=== PATIENT | male | born 1950 | race Caucasian/White ===

== ENCOUNTER 2017-12-13 12:06 | Inpatient (IN) | payer OTHER ==
[~2017-12-13] VITALS: Ht 170.2 cm; Wt 48.3 kg
[~2017-12-13 12:06] MED LIST: ASPI325T17 PO; ATOR80TA PO; CARV3.1212 PO; IPRA4AER INH; METH10SY PO; METH40TA3 PO; MULT-750 PO; NITR0.4T SL; PANT40TA3 PO; POLY17PO5 PO; TICA90TA PO
[2017-12-13] MEDS ORDERED: SODIUM CHLORIDE FLUSH 10ML SYR IVF ONE (13:00)
[2017-12-13 13:19] LABS: BASOPHILS # (AUTO) 0.03 x10^3/uL (0-0.1); BASOPHILS % (AUTO) 0 % (0-1); EOSINOPHILS # (AUTO) 0.04 x10^3/uL (0-0.4); EOSINOPHILS % (AUTO) 1 % (1-7); LYMPHOCYTES # (AUTO) 0.73 x10^3/uL (1-3.4); LYMPHOCYTES % (AUTO) 9 % (22-44); MD NO; MEAN CORPUSCULAR HEMOGLOBIN 35.9 pg (27.5-34.5); MEAN CORPUSCULAR HGB CONC 33.5 g/dL (33.2-36.2); MEAN CORPUSCULAR VOLUME 107.1 fL (81-97); MEAN PLATELET VOLUME 7.6 fL (7.4-10.4); MONOCYTES # (AUTO) 0.57 x10^3/uL (0.2-0.8); MONOCYTES % (AUTO) 7 % (2-9); NEUTROPHILS # (AUTO) 7.04 x10^3/uL (1.8-6.8); NEUTROPHILS % (AUTO) 84 % (42-75); PLATELET COUNT 250 x10^3/uL (130-400); RED BLOOD COUNT 2.86 x10^6/uL (4.38-5.82); RED CELL DISTRIBUTION WIDTH 18.6 % (9.4-14.8)
[2017-12-13 13:32] LABS: ALANINE AMINOTRANSFERASE 34 U/L (12-78); ALBUMIN 1.8 g/dL (3.4-5.0); ANION GAP 11 mmol/L (5-15); CALCIUM 7.9 mg/dL (8.5-10.1); CHLORIDE 102 mmol/L (98-107); CREATININE 0.66 mg/dL (0.7-1.3)
[2017-12-13 13:36] LABS: TOTAL PROTEIN 7.9 g/dL (6.4-8.2); TROPONIN I < 0.015 ng/mL (0.000-0.045)
[2017-12-13 13:41] LABS: INTERNATIONAL NORMALIZED RATIO 1.11 (0.93-1.1); PROTHROMBIN TIME 11.4 Seconds (9.6-11.5)
[2017-12-13 13:46] LABS: ALKALINE PHOSPHATASE 1436 U/L (45-117)
[2017-12-13] MEDS ORDERED: SODIUM CHLORIDE 0.9% 1,000ML IVBOLUS ONE (14:00)
[2017-12-13] MEDS ORDERED: SODIUM CHLORIDE 0.9% 1,000 ML IV ONE (14:40)
[2017-12-13] MEDS ORDERED: SODIUM CHLORIDE FLUSH 10ML SYR IVF PRN (15:00)
[2017-12-13] MEDS ORDERED: TAMSULOSIN 0.4 MG CAP.ER.24H PO SCH (15:00)
[2017-12-13] MEDS ORDERED: ONDANSETRON ODT 4 MG PO PRN (15:00)
[2017-12-13] MEDS ORDERED: POTASSIUM CHLORIDE 20 MEQ TAB.ER.PRT PO ONE (15:00)
[2017-12-13] MEDS ORDERED: ASPI325T17 PO (16:09)
[2017-12-13] MEDS ORDERED: METH10SY PO (16:09)
[2017-12-13 16:16] LABS: TROPONIN I < 0.015 ng/mL (0.000-0.045)
[2017-12-13 16:48] VITALS: BP 133/80
[2017-12-13] MEDS: ALBUMIN HUMAN 25% 100 ML IV SCH (17:00)
[2017-12-13] MEDS ORDERED: ZOLPIDEM 10MG TABLET PO PRN (17:00)
[2017-12-13] MEDS ORDERED: ACETAMINOPHEN 325 MG TABLET PO PRN (17:00)
[2017-12-13] MEDS: NICOTINE 7 MG/24 HR PATCH.TD24 TD SCH (17:14)
[2017-12-13] MEDS: FUROSEMIDE 20 MG/2 ML IV SCH (18:13)
[2017-12-13] MEDS ORDERED: CETI10TA24 PO (18:21)
[2017-12-13 19:36] VITALS: BP 118/74
[2017-12-13] MEDS: ATORVASTATIN 40 MG TABLET PO SCH (21:07)
[2017-12-13 22:54] LABS: % IRON SATURATION 37 % (20-55); IRON LEVEL 53 mcg/dL (65-175); TOTAL IRON BINDING CAPACITY 142 mcg/dL (250-450); TROPONIN I < 0.015 ng/mL (0.000-0.045)
[2017-12-13 23:23] LABS: FOLATE LEVEL 13.6 ng/mL (3.1-17.5); TRANSFERRIN 116 mg/dL (200-360)
[2017-12-14] MEDS: ALBUMIN HUMAN 25% 100 ML IV SCH ×4 (00:12→18:26)
[2017-12-14 01:18] VITALS: BP 111/67
[2017-12-14] MEDS: FUROSEMIDE 20 MG/2 ML IV SCH ×4 (01:23→22:37)
[2017-12-14] MEDS ORDERED: REGADENOSON 0.4 MG/5 ML SYRINGE ONE (08:29)
[2017-12-14 08:57] VITALS: BP 118/69
[2017-12-14] MEDS ORDERED: METHADONE 10 MG TABLET ONE (10:45)
[2017-12-14] MEDS: ASPIRIN 325 MG TABLET PO SCH (10:49)
[2017-12-14] MEDS: TAMSULOSIN 0.4 MG CAP.ER.24H PO SCH (10:49)
[2017-12-14] MEDS: METHADONE INTENSOL 10 MG/ML ORAL CONC PO SCH (10:50)
[2017-12-14] MEDS: NICOTINE 7 MG/24 HR PATCH.TD24 TD SCH (12:53)
[2017-12-14 13:50] VITALS: BP 114/72
[2017-12-14 19:05] VITALS: BP 133/77
[2017-12-14] MEDS: ATORVASTATIN 40 MG TABLET PO SCH (20:21)
[2017-12-14] MEDS ORDERED: METHADONE 10 MG TABLET PO ONE (20:30)
[2017-12-14 22:41] VITALS: BP 113/67
[2017-12-15 00:43] VITALS: BP 106/66
[2017-12-15] MEDS: ALBUMIN HUMAN 25% 100 ML IV SCH (01:36)
[2017-12-15] MEDS: FUROSEMIDE 20 MG/2 ML IV SCH (04:28)
[2017-12-15] MEDS ORDERED: ASPI325T17 PO (06:47)
[2017-12-15 07:58] VITALS: BP 138/78
[2017-12-15] MEDS: ASPIRIN 325 MG TABLET PO SCH (09:11)
[2017-12-15] MEDS: METHADONE INTENSOL 10 MG/ML ORAL CONC PO SCH (09:11)
[2017-12-15] MEDS: TAMSULOSIN 0.4 MG CAP.ER.24H PO SCH (09:11)
== END 2017-12-15 11:15 | disposition home or self-care (01) | DRG 303 ==
LOC: ED 14:27 → EDIP 14:40 → 5SO 15:29 → DCLOUNGE 12-15 10:45
PROVIDERS: ADMIT Hospitalist; ATTEND Hospitalist
DX: I25.110 Atherosclerotic heart disease of native coronary artery with unstable angina pectoris (principal); J44.9 Chronic obstructive pulmonary disease, unspecified; K70.11 Alcoholic hepatitis with ascites; K80.70 Calculus of gallbladder and bile duct without cholecystitis without obstruction; D64.89 Other specified anemias; F10.10 Alcohol abuse, uncomplicated; Y90.9 Presence of alcohol in blood, level not specified; B19.20 Unspecified viral hepatitis C without hepatic coma; E78.5 Hyperlipidemia, unspecified; E03.9 Hypothyroidism, unspecified; I34.0 Nonrheumatic mitral (valve) insufficiency; I10 Essential (primary) hypertension; F17.200 Nicotine dependence, unspecified, uncomplicated; I25.2 Old myocardial infarction; Z95.5 Presence of coronary angioplasty implant and graft; Z91.19 Patient's noncompliance with other medical treatment and regimen; Z79.82 Long term (current) use of aspirin; Z79.899 Other long term (current) drug therapy; Z79.1 Long term (current) use of non-steroidal anti-inflammatories (NSAID)
CPT/HCPCS: 36415; 71045; 74181; 78452; 80053; 82105; 82378; 82607; 82728; 82746; 83540; 83550; 83690; 83880; 84443; 84466; 84484; 85025; 85610; 85730; 86304; 86705; 86706; 86803; 87340; 87521; 87806; 93005; 93017; 93306; 99285; J2785; P9047; A9502; C9898; G0475; J1940; J7030

== ENCOUNTER → 2018-06-08 | Outpatient (CLI) | payer OTHER ==
[~2018-06-08] MED LIST changes: +CETI10TA24 PO; +No meds per pt.
[2018-06-08 13:23] LABS: BASOPHILS # (AUTO) 0.02 x10^3/uL (0-0.1); BASOPHILS % (AUTO) 0 % (0-1); EOSINOPHILS # (AUTO) 0.14 x10^3/uL (0-0.4); EOSINOPHILS % (AUTO) 2 % (1-7); LYMPHOCYTES # (AUTO) 1.08 x10^3/uL (1-3.4); LYMPHOCYTES % (AUTO) 17 % (22-44); MD NO; MEAN CORPUSCULAR HGB CONC 34.4 g/dL (33.2-36.2); MEAN CORPUSCULAR VOLUME 107.5 fL (81-97); MEAN PLATELET VOLUME 8.2 fL (7.4-10.4); MONOCYTES # (AUTO) 0.44 x10^3/uL (0.2-0.8); MONOCYTES % (AUTO) 7 % (2-9); NEUTROPHILS # (AUTO) 4.66 x10^3/uL (1.8-6.8); NEUTROPHILS % (AUTO) 73 % (42-75); PLATELET COUNT 213 x10^3/uL (130-400); RED CELL DISTRIBUTION WIDTH 16.5 % (9.4-14.8)
[2018-06-08 13:25] LABS: ALANINE AMINOTRANSFERASE 109 U/L (12-78); ALBUMIN 2.5 g/dL (3.4-5.0); ANION GAP 8 mmol/L (5-15); CALCIUM 8.7 mg/dL (8.5-10.1); CHLORIDE 100 mmol/L (98-107)
[2018-06-08 13:27] LABS: ALKALINE PHOSPHATASE 891 U/L (45-117); BILIRUBIN,TOTAL 8.7 mg/dL (0.2-1.0); TOTAL PROTEIN 9.3 g/dL (6.4-8.2)
[2018-06-08 13:28] LABS: INTERNATIONAL NORMALIZED RATIO 1.12 (0.93-1.1); PROTHROMBIN TIME 11.6 Seconds (9.6-11.5)
== END | disposition home or self-care (01) ==
LOC: STAR 11:48
PROVIDERS: ATTEND Internal Medicine Gastroenterology
DX: Z01.818 Encounter for other preprocedural examination (principal); R17 Unspecified jaundice; R16.0 Hepatomegaly, not elsewhere classified
CPT/HCPCS: 36415; 80053; 85025; 85610; 85730; 93005

== ENCOUNTER 2018-06-16 05:37 | Day surgery (SDC) | payer OTHER ==
[2018-06-08 12:40] VITALS: BP 126/71
[~2018-06-16] VITALS: Ht 170.2 cm; Wt 47.2 kg
[2018-06-16] MEDS ORDERED: LACTATED RINGERS 1,000 ML IV SCH (06:10)
[2018-06-16] MEDS ORDERED: CHLORHEXIDINE 15 ML BOTTLE ONE (06:58)
[2018-06-16] MEDS ORDERED: PIPERACILLIN/TAZO/PMX 3.375GM 50 ML ONE (07:00)
[2018-06-16] MEDS ORDERED: FENTANYL PF 100 MCG/2ML ONE (07:19)
[2018-06-16] MEDS ORDERED: EPHEDRINE 50 MG/ML, 1ML ONE (07:20)
[2018-06-16] MEDS ORDERED: CEFAZOLIN 1,000 MG ONE (07:47)
[2018-06-16] MEDS ORDERED: DEXAMETHASONE 4 MG/ML, 1ML ONE (07:47)
[2018-06-16] MEDS ORDERED: SUCCINYLCHOLINE 20 MG/ML, 10ML ONE (07:47)
[2018-06-16] MEDS ORDERED: ROCURONIUM 10MG/ML,5ML ONE (07:47)
[2018-06-16] MEDS ORDERED: NEOSTIGMINE 1 MG/ML, 10ML ONE (07:47)
[2018-06-16] MEDS ORDERED: PROPOFOL 10 MG/ML, 20ML ONE (07:47)
[2018-06-16] MEDS ORDERED: GLYCOPYRROLATE 0.2MG/1ML, 5ML ONE (07:47)
[2018-06-16] MEDS ORDERED: ONDANSETRON 2MG/ML, 2ML ONE (07:47)
[2018-06-16] MEDS ORDERED: ACETAMINOPHEN 325 MG TABLET PO PRN (08:00)
[2018-06-16] MEDS ORDERED: MEPERIDINE/PF 25MG/0.5ML IVPush PRN (08:00)
[2018-06-16] MEDS ORDERED: ONDANSETRON 2MG/ML, 2ML IV PRN (08:00)
[2018-06-16] MEDS ORDERED: FENTANYL PF 100 MCG/2ML IV PRN (08:00)
[2018-06-16] MEDS ORDERED: ONDANSETRON ODT 8 MG PO PRN (08:00)
[2018-06-16] MEDS ORDERED: PROMETHAZINE 25 MG/ML, 1ML IV PRN (08:00)
[2018-06-16] MEDS ORDERED: OXYcodone 5 MG/5 ML ORAL.SOL UDC PO PRN (08:00)
[2018-06-16] MEDS ORDERED: OMNIPAQUE 350 MG/ML, 50 ML BOTTLE ONE (08:44)
[2018-06-16] MEDS ORDERED: INDOMETHACIN 50 MG SUPP.RECT ONE (08:58)
[2018-06-16] MEDS ORDERED: LACTATED RINGERS 1,000 ML IVBOLUS ONE (09:30)
[2018-06-16] MEDS ORDERED: INDOMETHACIN 50 MG SUPP.RECT PR ONE (09:30)
== END 2018-06-16 11:00 | disposition home or self-care (01) ==
LOC: OUT 05:37
PROVIDERS: ATTEND Internal Medicine Gastroenterology
DX: K29.50 Unspecified chronic gastritis without bleeding (principal); K80.50 Calculus of bile duct without cholangitis or cholecystitis without obstruction; K82.8 Other specified diseases of gallbladder; I25.10 Atherosclerotic heart disease of native coronary artery without angina pectoris; I25.2 Old myocardial infarction; E78.5 Hyperlipidemia, unspecified; Z86.19 Personal history of other infectious and parasitic diseases; Z72.89 Other problems related to lifestyle
CPT/HCPCS: 43237; 43239; 43261; 43262; 43264; 74328; 88305; C1769; C1894; C2625; J0330; J0690; J1100; J2405; J2543; J2704; J2710; J3010; J3490; J7120; Q9967

== ENCOUNTER 2018-06-30 06:13 | Day surgery (SDC) | payer OTHER ==
[~2018-06-30] VITALS: Ht 170.2 cm; Wt 46.6 kg
[2018-06-30] MEDS ORDERED: LACTATED RINGERS 1,000 ML IV SCH (06:55)
[2018-06-30] MEDS ORDERED: METH-356 PO (06:56)
[2018-06-30 06:57] VITALS: BP 119/68
[2018-06-30] MEDS ORDERED: PIPERACILLIN/TAZO/PMX 3.375GM 50 ML IV ONE (07:00)
[2018-06-30] MEDS ORDERED: MIDAZOLAM 1 MG/ML, 2ML ONE (07:37)
[2018-06-30] MEDS ORDERED: FENTANYL PF 250 MCG/5ML ONE (07:37)
[2018-06-30] MEDS ORDERED: ROCURONIUM 10MG/ML,5ML ONE (07:38)
[2018-06-30] MEDS ORDERED: LIDOCAINE-MPF 2% ,5ML ONE (07:39)
[2018-06-30] MEDS ORDERED: PROPOFOL 10 MG/ML, 20ML ONE (07:39)
[2018-06-30] MEDS ORDERED: PHENYLEPHRINE 10 MG/ML ONE (07:40)
[2018-06-30] MEDS ORDERED: LABETALOL 5MG/ML, 20ML ONE (08:03)
[2018-06-30] MEDS ORDERED: DEXAMETHASONE 4 MG/ML, 1ML ONE ×2 (08:19)
[2018-06-30] MEDS ORDERED: ALBUTEROL/IPRATROPIUM 2.5MG/0.5MG, 3 ML NPPB PRN (08:30)
[2018-06-30] MEDS ORDERED: LORazepam 2 MG/ML, 1ML IVPush PRN (08:30)
[2018-06-30] MEDS ORDERED: OXYcodone 5 MG/5 ML ORAL.SOL UDC PO PRN (08:30)
[2018-06-30] MEDS ORDERED: MEPERIDINE/PF 25MG/0.5ML IVPush PRN (08:30)
[2018-06-30] MEDS ORDERED: HYDROmorphone 1 MG/ML, 1ML IV PRN (08:30)
[2018-06-30] MEDS ORDERED: HALOPERIDOL 5 MG/ML IV PRN (08:30)
[2018-06-30] MEDS ORDERED: FENTANYL PF 100 MCG/2ML IV PRN (08:30)
[2018-06-30] MEDS ORDERED: PROMETHAZINE 25 MG/ML, 1ML IV PRN (08:30)
[2018-06-30] MEDS ORDERED: FENTANYL PF 100 MCG/2ML ONE (09:10)
[2018-06-30] MEDS ORDERED: ONDANSETRON 2MG/ML, 2ML ONE (09:11)
[2018-06-30] MEDS ORDERED: OMNIPAQUE 350 MG/ML, 50 ML BOTTLE ONE (10:34)
[2018-06-30] MEDS ORDERED: INDOMETHACIN 50 MG SUPP.RECT ONE (10:49)
[2018-06-30] MEDS ORDERED: INDOMETHACIN 50 MG SUPP.RECT PR ONE (11:30)
== END 2018-06-30 13:32 | disposition home or self-care (01) ==
LOC: OUT 06:13
PROVIDERS: ATTEND Internal Medicine Gastroenterology
DX: K80.50 Calculus of bile duct without cholangitis or cholecystitis without obstruction (principal); I25.10 Atherosclerotic heart disease of native coronary artery without angina pectoris; F10.10 Alcohol abuse, uncomplicated; I25.2 Old myocardial infarction; E78.00 Pure hypercholesterolemia, unspecified; E03.9 Hypothyroidism, unspecified; I10 Essential (primary) hypertension; Z79.82 Long term (current) use of aspirin; Z95.5 Presence of coronary angioplasty implant and graft
CPT/HCPCS: 43262; 43264; 43274; 74330; C1725; C1769; C1894; C2625; J1100; J2250; J2370; J2405; J2543; J2704; J3010; J3490; J7120; Q9967

== ENCOUNTER 2018-07-21 06:03 | Day surgery (SDC) | payer OTHER ==
[~2018-07-21] VITALS: Ht 170.2 cm; Wt 46.8 kg
[~2018-07-21 06:03] MED LIST changes: +METH-356 PO
[2018-07-21 07:07] VITALS: BP 131/76
[2018-07-21] MEDS ORDERED: LACTATED RINGERS 1,000 ML IV SCH (07:11)
[2018-07-21] MEDS ORDERED: PROPOFOL 10 MG/ML, 20ML ONE (08:11)
[2018-07-21] MEDS ORDERED: GLYCOPYRROLATE 0.4 MG/2 ML, 2ML ONE (08:12)
[2018-07-21] MEDS ORDERED: NEOSTIGMINE 1 MG/ML, 10ML ONE (08:12)
[2018-07-21] MEDS ORDERED: ROCURONIUM 10MG/ML,5ML ONE (08:12)
[2018-07-21] MEDS ORDERED: FENTANYL PF 100 MCG/2ML ONE (08:13)
[2018-07-21] MEDS ORDERED: OMNIPAQUE 350 MG/ML, 50 ML BOTTLE ONE (10:17)
== END 2018-07-21 11:40 | disposition home or self-care (01) ==
LOC: OUT 06:03
PROVIDERS: ATTEND Internal Medicine Gastroenterology
DX: K80.50 Calculus of bile duct without cholangitis or cholecystitis without obstruction (principal); I25.10 Atherosclerotic heart disease of native coronary artery without angina pectoris; I25.2 Old myocardial infarction; E78.00 Pure hypercholesterolemia, unspecified; I10 Essential (primary) hypertension; F17.200 Nicotine dependence, unspecified, uncomplicated; F10.10 Alcohol abuse, uncomplicated; Z79.899 Other long term (current) drug therapy; Z98.890 Other specified postprocedural states
CPT/HCPCS: 43276; 43277; 74328; C1725; C1769; C1894; C2625; J2704; J2710; J3010; J7120; Q9967

== ENCOUNTER 2018-07-28 07:19 | Day surgery (SDC) | payer OTHER ==
[~2018-07-28] VITALS: Ht 170.2 cm; Wt 45.9 kg
[2018-07-28] MEDS ORDERED: ASPI-650 PO (07:43)
[2018-07-28 07:56] VITALS: BP 129/79
[2018-07-28] MEDS ORDERED: LACTATED RINGERS 1,000 ML IV SCH (08:12)
[2018-07-28] MEDS ORDERED: MIDAZOLAM 1 MG/ML, 2ML ONE (08:28)
[2018-07-28] MEDS ORDERED: FENTANYL PF 100 MCG/2ML ONE (08:28)
[2018-07-28] MEDS ORDERED: PHENYLEPHRINE 10 MG/ML ONE (08:44)
[2018-07-28] MEDS ORDERED: OMNIPAQUE 350 MG/ML, 50 ML BOTTLE ONE (09:00)
[2018-07-28] MEDS ORDERED: OXYcodone 5 MG/5 ML ORAL.SOL UDC PO PRN (09:30)
[2018-07-28] MEDS ORDERED: HYDROmorphone 1 MG/ML, 1ML IV PRN (09:30)
[2018-07-28] MEDS ORDERED: FENTANYL PF 100 MCG/2ML IV PRN (09:30)
[2018-07-28] MEDS ORDERED: MIDAZOLAM 1 MG/ML, 2ML IV PRN (09:30)
[2018-07-28] MEDS ORDERED: ALBUTEROL/IPRATROPIUM 2.5MG/0.5MG, 3 ML NPPB PRN (09:30)
[2018-07-28] MEDS ORDERED: hydrALAzine 20 MG/ML, 1ML IV PRN (09:30)
[2018-07-28] MEDS ORDERED: ONDANSETRON 2MG/ML, 2ML ONE (09:42)
[2018-07-28] MEDS ORDERED: ROCURONIUM 10MG/ML,5ML ONE (09:42)
[2018-07-28] MEDS ORDERED: SUCCINYLCHOLINE 20 MG/ML, 10ML ONE (09:42)
[2018-07-28] MEDS ORDERED: DEXAMETHASONE 4 MG/ML, 1ML ONE (09:42)
[2018-07-28] MEDS ORDERED: PROPOFOL 10 MG/ML, 20ML ONE (09:42)
== END 2018-07-28 12:30 | disposition home or self-care (01) ==
LOC: OUT 07:19
PROVIDERS: ATTEND Internal Medicine Gastroenterology
DX: K80.51 Calculus of bile duct without cholangitis or cholecystitis with obstruction (principal); I25.10 Atherosclerotic heart disease of native coronary artery without angina pectoris; E78.00 Pure hypercholesterolemia, unspecified; I10 Essential (primary) hypertension; E03.9 Hypothyroidism, unspecified; I25.2 Old myocardial infarction; F19.10 Other psychoactive substance abuse, uncomplicated; F17.210 Nicotine dependence, cigarettes, uncomplicated; Z79.82 Long term (current) use of aspirin; Z79.899 Other long term (current) drug therapy; Z72.89 Other problems related to lifestyle; Z83.3 Family history of diabetes mellitus; Z82.49 Family history of ischemic heart disease and other diseases of the circulatory system; Z98.890 Other specified postprocedural states
CPT/HCPCS: 43265; 43275; 43277; 74328; 93005; C1769; J0330; J1100; J2250; J2370; J2405; J2704; J3010; Q9967

== ENCOUNTER 2019-11-26 16:48 | Observation (INO) | payer MEDICARE, OTHER ==
[~2019-11-26] VITALS: Ht 170.2 cm; Wt 54.3 kg
[~2019-11-26 16:48] MED LIST changes: +ASPI-650 PO; -CETI10TA24 PO; +CETI10TA26 PO; -METH-356 PO; +METH10TA2 PO; -NITR0.4T SL; +NITR0.4T41 SL
[2019-11-26] MEDS ORDERED: hydrOXyzine 50MG TABLET ONE (17:24)
--- NOTE | 2019-11-26 17:32 | NUR ---
THIS IS A 69 YO MALE C/O "UNEASY FEELING" AND FEELING COLD/SHAKY AFTER WALKING OUTSIDE TODAY X SEVERAL HOURS. PT REQUESTING CO-VID TESTING AND REQUESTING DEMEROL "TO PUT ME OUT MY MISERY IF I HAVE SOMETHING". PT CURRENTLY DENIES FEVER/PAIN. PT DENIES COUGHING "MORE THAN NORMAL" PT SMOKES 1/2 PPD. PT DENIES ANY RECENT EXPOSURE TO ANYONE DX'D WITH COVID, NO RECENT TRAVEL AND NO RECENT EXPOSURE TO ANYONE WHO HAS TRAVELED OUTSIDE OF THE [place]. PT C/O "TINGLING" TO BILAT ARMS. 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 PT ALSO REQUESTING AND WAS MEDICATED ORDERED FOR ANXIETY MEDICATION. PT AO X 4. SKIN PWD. RESP EVEN AND UNLABORED. PT ON CONT BP, CARDIAC AND O2 MONITORS. CALL LIGHT WITHIN REACH. WILL CONT TO MONITOR PT.
[2019-11-26 17:34] LABS: BASOPHILS # (AUTO) 0.02 x10^3/uL (0-0.1); BASOPHILS % (AUTO) 0 % (0-1); EOSINOPHILS # (AUTO) 0.02 x10^3/uL (0-0.4); EOSINOPHILS % (AUTO) 0 % (1-7); LYMPHOCYTES % (AUTO) 11 % (22-44); MD NO; MEAN CORPUSCULAR HGB CONC 33.7 g/dL (33.2-36.2); MEAN CORPUSCULAR VOLUME 97.9 fL (81-97); MEAN PLATELET VOLUME 8.1 fL (7.4-10.4); MONOCYTES # (AUTO) 0.29 x10^3/uL (0.2-0.8); MONOCYTES % (AUTO) 4 % (2-9); NEUTROPHILS # (AUTO) 5.93 x10^3/uL (1.8-6.8); NEUTROPHILS % (AUTO) 84 % (42-75); PLATELET COUNT 204 x10^3/uL (130-400); RED BLOOD COUNT 4.34 x10^6/uL (4.38-5.82)
[2019-11-26 17:43] LABS: MICROSCOPIC NOT IND
[2019-11-26 17:46] LABS: ALANINE AMINOTRANSFERASE 33 U/L (12-78); ALBUMIN 3.9 g/dL (3.4-5.0); ANION GAP 9 mmol/L (5-15); CALCIUM 8.6 mg/dL (8.5-10.1); CHLORIDE 97 mmol/L (98-107)
[2019-11-26 17:52] LABS: ALKALINE PHOSPHATASE 215 U/L (45-117); BILIRUBIN,TOTAL 0.4 mg/dL (0.2-1.0); TOTAL PROTEIN 8.3 g/dL (6.4-8.2); TROPONIN I < 0.015 ng/mL (0.000-0.045)
[2019-11-26] MEDS ORDERED: POTASSIUM CHLORIDE 20 MEQ TAB.ER.PRT PO ONE ×2 (18:00→21:00)
[2019-11-26] MEDS ORDERED: POTASSIUM CHLORIDE 20 MEQ TAB.ER.PRT ONE (18:03)
[2019-11-26 18:15] LABS: CULTURE INDICATED? NO
--- NOTE | 2019-11-26 18:17 | NUR ---
SANDY SHEFFIELD AT BEDSIDE FOR RECHECK/EXPLANATION OF RESULTS. PT VERBALIZED UNDERSTANDING OF POC AND DENIED ANY QUESTIONS. PT CONTINUOUSLY ASKING FOR "SOMETHING TO KNOCK ME OUT". PT DENIES PAIN. SANDY SHEFFIELD AWARE. AWAITING ORDERS. PT ON CONT BP, CARDIAC AND O2 MONITORS. CALL LIGHT WITHIN REACH. WILL CONT TO MONITOR PT.
--- NOTE | 2019-11-26 18:19 | NUR ---
PT TO IMAGING VIA [employer] AT THIS TIME.
--- NOTE | 2019-11-26 18:20 | NUR ---
SANDY SHEFFIELD AT BEDSIDE AND EDUCATED PT TO DRINK BROTH TO SLOWLY INCREASE SODIUM. PT SIPPING ON BROTH. WILL CONT TO MONITOR PT.
[2019-11-26] MEDS ORDERED: METH40TA3 PO (18:22)
[2019-11-26 18:24] LABS: SODIUM,URINE RANDOM 85 mmol/L
[2019-11-26 19:13] LABS: OSMOLALITY,URINE 302 mOsm/kg (500-850)
[2019-11-26] MEDS ORDERED: SODIUM CHLORIDE 0.9% 1,000 ML IV ONE (19:29)
[2019-11-26] MEDS ORDERED: SODIUM CHLORIDE FLUSH 10ML SYR IVF ONE (19:30)
--- NOTE | 2019-11-26 19:30 | NUR ---
DISCUSSED BP OF 197/124 AND NEED FOR NS INFUSION. ORDERS RECEIVED. ADMITTING ABBY CASTAÑEDA AT BEDSIDE FOR EVAL.
[2019-11-26] MEDS ORDERED: LABETALOL 5MG/ML, 20ML ONE (19:32)
[2019-11-26] MEDS ORDERED: LABETALOL 5MG/ML, 20ML IVPush ONE (20:00)
[2019-11-26] MEDS ORDERED: ACETAMINOPHEN 325 MG TABLET PO PRN (21:00)
[2019-11-26] MEDS ORDERED: LABETALOL 5MG/ML, 20ML IVPush PRN (21:00)
[2019-11-26] MEDS ORDERED: NITROGLYCERIN 0.4 MG BOTTLE (25 TABS) SL PRN (21:00)
[2019-11-26] MEDS ORDERED: ENOXAPARIN 40 MG/0.4 ML SQ SCH (21:00)
[2019-11-26] MEDS ORDERED: GABAPENTIN 300 MG CAPSULE PO PRN (21:30)
[2019-11-26] MEDS ORDERED: ONDANSETRON ODT 4 MG PO PRN (21:30)
[2019-11-26] MEDS ORDERED: DOCUSATE 100 MG CAPSULE PO PRN (21:30)
[2019-11-26] MEDS: INSULIN LISPRO 100 UNITS/ML, PEN SQ-INSULIN SCH (21:30)
[2019-11-26] MEDS ORDERED: TEMAZEPAM 15 MG CAPSULE PO PRN (21:30)
[2019-11-26 22:28] VITALS: BP 179/84
[2019-11-26] MEDS ORDERED: OMNIPAQUE 350 MG/ML, 100ML BOTTLE ONE (23:37)
[2019-11-26 23:40] LABS: RAPID INFLUENZA A Negative (Negative); RAPID INFLUENZA B Negative (Negative)
[2019-11-26 23:51] LABS: ANION GAP 6 mmol/L (5-15); CALCIUM 8.8 mg/dL (8.5-10.1); CHLORIDE 99 mmol/L (98-107); CREATININE 0.99 mg/dL (0.7-1.3)
[2019-11-27 01:16] VITALS: BP 114/69
[2019-11-27 05:56] LABS: BASOPHILS # (AUTO) 0.01 x10^3/uL (0-0.1); BASOPHILS % (AUTO) 0 % (0-1); EOSINOPHILS # (AUTO) 0.04 x10^3/uL (0-0.4); EOSINOPHILS % (AUTO) 1 % (1-7); LYMPHOCYTES # (AUTO) 2.23 x10^3/uL (1-3.4); LYMPHOCYTES % (AUTO) 34 % (22-44); MD NO; MEAN CORPUSCULAR HEMOGLOBIN 32.9 pg (27.5-34.5); MEAN CORPUSCULAR HGB CONC 33.5 g/dL (33.2-36.2); MEAN PLATELET VOLUME 7.9 fL (7.4-10.4); MONOCYTES # (AUTO) 0.56 x10^3/uL (0.2-0.8); MONOCYTES % (AUTO) 9 % (2-9); NEUTROPHILS # (AUTO) 3.77 x10^3/uL (1.8-6.8); NEUTROPHILS % (AUTO) 57 % (42-75); PLATELET COUNT 172 x10^3/uL (130-400); RED BLOOD COUNT 3.98 x10^6/uL (4.38-5.82); RED CELL DISTRIBUTION WIDTH 13.9 % (9.4-14.8)
[2019-11-27 06:06] LABS: CHLORIDE 103 mmol/L (98-107)
[2019-11-27 06:23] LABS: ANION GAP 4 mmol/L (5-15); CALCIUM 8.7 mg/dL (8.5-10.1); CHOL/HDL RATIO 2.9; CHOLESTEROL, TOTAL 178 mg/dL (140-239); CREATININE 1.16 mg/dL (0.7-1.3); FREE T4 (FREE THYROXINE) 1.25 ng/dL (0.76-1.46); HDL CHOL % 35 % (26-37); HDL CHOLESTEROL (DIRECT) 62 mg/dL (40-60); LDL CHOLESTEROL,CALCULATED 102 mg/dL (54-169); LDL/HDL RATIO 1.6 (0.5-3.0); TRIGLYCERIDES 71 mg/dL (50-200); VLDL CHOLESTEROL 14 mg/dL (0-25)
[2019-11-27] MEDS: INSULIN LISPRO 100 UNITS/ML, PEN SQ-INSULIN SCH ×2 (07:25→11:06)
[2019-11-27 08:44] VITALS: BP 172/88
[2019-11-27 08:47] VITALS: BP 119/70
[2019-11-27] MEDS ORDERED: METHADONE INTENSOL 10 MG/ML ORAL CONC PO SCH (09:00)
[2019-11-27] MEDS ORDERED: ASPIRIN 325 MG TABLET EC PO SCH (09:00)
[2019-11-27] MEDS ORDERED: ATOR40TA PO (11:57)
[2019-11-27] MEDS ORDERED: NITR0.4T41 SL (11:57)
== END 2019-11-27 13:48 | disposition home or self-care (01) ==
LOC: ED 18:44 → INTOOBSV 18:58 → EDIP 18:58 → 3N 20:10
PROVIDERS: ADMIT Internal Medicine; ATTEND Family Medicine
DX: E87.1 Hypo-osmolality and hyponatremia (principal); J96.00 Acute respiratory failure, unspecified whether with hypoxia or hypercapnia; I16.0 Hypertensive urgency; E03.9 Hypothyroidism, unspecified; E78.5 Hyperlipidemia, unspecified; E87.6 Hypokalemia; F17.210 Nicotine dependence, cigarettes, uncomplicated; I10 Essential (primary) hypertension; J43.9 Emphysema, unspecified; B19.20 Unspecified viral hepatitis C without hepatic coma; R73.9 Hyperglycemia, unspecified; F19.11 Other psychoactive substance abuse, in remission; I25.10 Atherosclerotic heart disease of native coronary artery without angina pectoris; I25.2 Old myocardial infarction; Z95.5 Presence of coronary angioplasty implant and graft; Z79.899 Other long term (current) drug therapy; Z91.19 Patient's noncompliance with other medical treatment and regimen; Z79.82 Long term (current) use of aspirin
CPT/HCPCS: 36415; 71045; 71260; 80048; 80053; 80061; 81003; 82962; 83036; 83735; 83880; 83930; 83935; 84300; 84439; 84443; 84484; 84550; 85025; 87400; 93005; 96361; 96372; 96374; 96376; 99285; G0378; J1650; J7030; Q0177; Q9967

== ENCOUNTER 2020-06-25 07:13 | Outpatient (CLI) | payer MEDICARE, MEDICAID ==
[~2020-06-25 07:13] MED LIST changes: +ATOR40TA PO; -CETI10TA26 PO; +CETI10TA76 PO
== END 2020-06-25 23:59 | disposition home or self-care (01) ==
LOC: CVU 07:13
PROVIDERS: ATTEND Internal Medicine Cardiovascular Disease
DX: Z01.810 Encounter for preprocedural cardiovascular examination (principal); I08.0 Rheumatic disorders of both mitral and aortic valves; I10 Essential (primary) hypertension
CPT/HCPCS: C8929; Q9957

== ENCOUNTER 2020-07-19 17:51 | Observation (INO) | payer MEDICARE, MEDICAID ==
[~2020-07-19] VITALS: Ht 170.2 cm; Wt 64.9 kg
[~2020-07-19 17:51] MED LIST changes: -METH10SY PO; +[UNRECOGNIZED DRUG - CODE] PO
--- NOTE | 2020-07-19 18:16 | NUR ---
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
--- NOTE | 2020-07-19 18:24 | NUR ---
First contact with pt. Pt c/o sharp L sided CP intermittently x3 days. Pt also reports intermittent headaches and increased bilat LE swelling over the last 2 months. Pt speaking in full sentences, appears mildly SOB with talking and changing into hospital gown. Pt placed in gown and positioned for comfort in bed.
--- NOTE | 2020-07-19 18:48 | NUR ---
Dr. Temple at bedside to evaluate pt.
[2020-07-19] MEDS ORDERED: ONDANSETRON 2MG/ML, 2ML ONE (18:59)
[2020-07-19] MEDS ORDERED: ASPIRIN 81 MG TABLET CHEW ONE (19:00)
[2020-07-19] MEDS ORDERED: ONDANSETRON 2MG/ML, 2ML IVPush ONE (19:00)
[2020-07-19] MEDS ORDERED: ASPIRIN 81 MG TABLET CHEW PO ONE (19:00)
[2020-07-19] MEDS ORDERED: MORPHINE SULFATE 4 MG/ML, 1ML ONE ×2 (19:00→19:22)
[2020-07-19] MEDS: MORPHINE SULFATE 4 MG/ML, 1ML IVPush PRN ×2 (19:05→19:24)
--- NOTE | 2020-07-19 19:13 | NUR ---
FIRST CONTACT WITH PT, PT WITH MID STERNAL NON RADIATING, CHEST PRESSURE 7/10. MILD SOB, NO N/V, NO DIAPHORESIS. HX LAD STENTS 5 YRS AGO. EKG DONE TRIAGE. ASA GIVEN. MEDICATED WITH MORPHINE. ON MONITOR SINUS NO ECTOPY NO ST ELEVATION. PCXR DONE, IV & LABS. CALL FONG, AIDET PROVIDED WILL CONTINUE TO MONITOR.
[2020-07-19 19:20] LABS: ALANINE AMINOTRANSFERASE 39 U/L (12-78); ALBUMIN 3.4 g/dL (3.4-5.0); ANION GAP 6 mmol/L (5-15); CALCIUM 8.1 mg/dL (8.5-10.1); CHLORIDE 98 mmol/L (98-107); CREATININE 0.81 mg/dL (0.7-1.3)
[2020-07-19 19:25] LABS: ALKALINE PHOSPHATASE 253 U/L (45-117); BILIRUBIN,TOTAL 0.5 mg/dL (0.2-1.0); TOTAL PROTEIN 7.7 g/dL (6.4-8.2); TROPONIN I < 0.015 ng/mL (0.000-0.045)
[2020-07-19 19:41] LABS: BASOPHILS % (AUTO) 1 % (0-1); EOSINOPHILS % (AUTO) 1 % (1-7); LYMPHOCYTES % (AUTO) 23 % (22-44); MEAN CORPUSCULAR HEMOGLOBIN 32.2 pg (27.5-34.5); MEAN CORPUSCULAR HGB CONC 33.5 g/dL (33.2-36.2); MEAN PLATELET VOLUME 8.5 fL (7.4-10.4); MONOCYTES % (AUTO) 9 % (2-9); NEUTROPHILS % (AUTO) 66 % (42-75); PLATELET COUNT 181 x10^3/uL (130-400); RED CELL DISTRIBUTION WIDTH 15.8 % (9.4-14.8)
[2020-07-19 19:43] LABS: MD NO
--- NOTE | 2020-07-19 19:51 | NUR ---
CP GRACE, VSS.
--- NOTE | 2020-07-19 20:03 | NUR ---
AWAITING ADMIT. REMAINS SINUS NO ECTOPY NO ST ELEVATION. VSS. CP FREE.
[2020-07-19] MEDS ORDERED: ATORVASTATIN 40 MG TABLET PO SCH (21:00)
--- NOTE | 2020-07-19 21:29 | NUR ---
sleeping, no chest pain. waiting for tele bed. nsr no ectopy.
[2020-07-19] MEDS ORDERED: BISACODYL 10 MG SUPP PR PRN (21:30)
[2020-07-19] MEDS ORDERED: morphine SULFATE 10 MG/ML, 1ML IVPush PRN (21:30)
[2020-07-19] MEDS ORDERED: POLYETHYLENE GLYCOL 17 GM PACKET PO PRN (21:30)
[2020-07-19] MEDS ORDERED: NITROGLYCERIN 0.4 MG BOTTLE (25 TABS) SL PRN (21:30)
[2020-07-19] MEDS ORDERED: ACETAMINOPHEN 325 MG TABLET PO PRN (21:30)
[2020-07-19] MEDS ORDERED: ONDANSETRON ODT 4 MG PO PRN (21:30)
--- NOTE | 2020-07-19 21:35 | NUR ---
Right lower leg/calf, redness, warmth pt reports pain past few weeks. 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 pt tx to tele floor with all belongings, on monitor with no st elevation and no cpl.
[2020-07-19 23:11] VITALS: BP 143/81
[2020-07-20] MEDS: HEPARIN 5,000 UNITS/ML, 1ML SQ SCH ×3 (00:28→16:30)
[2020-07-20] MEDS: SODIUM CHLORIDE FLUSH 10ML SYR IVF SCH ×2 (00:28→07:54)
[2020-07-20] MEDS ORDERED: NICOTINE 21 MG/24 HR PATCH.TD24 TD SCH (01:00)
[2020-07-20 02:44] VITALS: BP 116/62
[2020-07-20 04:10] LABS: TROPONIN I < 0.015 ng/mL (0.000-0.045)
[2020-07-20 05:25] LABS: ANION GAP 4 mmol/L (5-15); CALCIUM 8.1 mg/dL (8.5-10.1); CHLORIDE 104 mmol/L (98-107)
[2020-07-20 05:26] LABS: CREATININE 0.88 mg/dL (0.7-1.3)
[2020-07-20] MEDS ORDERED: CARV12.5 PO (06:00)
[2020-07-20] MEDS ORDERED: CARVEDILOL 25 MG TABLET PO SCH (06:00)
[2020-07-20] MEDS ORDERED: FLUT1BLS3 IH (06:00)
[2020-07-20 07:04] VITALS: BP 93/56
[2020-07-20] MEDS ORDERED: REGADENOSON 0.4 MG/5 ML SYRINGE ONE (08:49)
[2020-07-20] MEDS ORDERED: TRELEGY IH SCH (09:00)
[2020-07-20] MEDS ORDERED: SENNA/DOCUSATE TABLET PO SCH (09:00)
[2020-07-20] MEDS ORDERED: METHADONE INTENSOL 10 MG/ML ORAL CONC PO SCH (09:00)
[2020-07-20] MEDS ORDERED: TRELEGY INH SCH (09:00)
[2020-07-20] MEDS ORDERED: ASPIRIN 325 MG TABLET EC PO SCH (09:00)
[2020-07-20] MEDS ORDERED: DEXTROSE 50%, 50ML SYRINGE IVPush ONE (09:30)
[2020-07-20 12:28] VITALS: BP 113/69
== END 2020-07-20 19:03 | disposition home or self-care (01) ==
LOC: ED 18:37 → INTOOBSV 20:06 → EDIP 20:06 → 5SO 23:01
PROVIDERS: ADMIT Internal Medicine; ATTEND Internal Medicine
DX: R07.89 Other chest pain (principal); I10 Essential (primary) hypertension; I25.110 Atherosclerotic heart disease of native coronary artery with unstable angina pectoris; E87.1 Hypo-osmolality and hyponatremia; J98.11 Atelectasis; D64.9 Anemia, unspecified; J44.9 Chronic obstructive pulmonary disease, unspecified; E78.5 Hyperlipidemia, unspecified; E03.9 Hypothyroidism, unspecified; K70.9 Alcoholic liver disease, unspecified; F17.210 Nicotine dependence, cigarettes, uncomplicated; I25.2 Old myocardial infarction; Z95.5 Presence of coronary angioplasty implant and graft; Z79.82 Long term (current) use of aspirin; Z79.899 Other long term (current) drug therapy
CPT/HCPCS: 36415; 71045; 78452; 80048; 80053; 82962; 83880; 84484; 85025; 93005; 93017; 93880; 93970; 96372; 96374; 96375; 99285; A9502; C9898; G0378; J1644; J2270; J2405; J2785; Q0162

== ENCOUNTER → 2020-08-21 | Outpatient (CLI) | payer MEDICARE, MEDICAID ==
[~2020-08-21] MED LIST changes: +CARV12.5 PO; +FLUT1BLS3 IH
== END | disposition home or self-care (01) ==
LOC: CFH 15:53
PROVIDERS: ATTEND Physician Assistant
DX: K80.20 Calculus of gallbladder without cholecystitis without obstruction (principal)
CPT/HCPCS: 74181